=== PATIENT | male | born 1975 | race Caucasian/White ===

== ENCOUNTER 2018-04-05 11:33 | Emergency (ER) | payer OTHER ==
[2018-04-05] MEDS ORDERED: METHYLPREDNISOLONE SOD SUCC 125MG/2ML VIAL ONE (12:13)
[2018-04-05] MEDS ORDERED: ALBUTEROL SULFATE 0.083% 2.5 MG/3 ML INH IH ONE (12:28)
[2018-04-05] MEDS ORDERED: IPRATROPIUM 0.5 MG/2.5 ML INH IH ONE (12:28)
== END 2018-04-05 13:15 | disposition home or self-care (01) ==
LOC: EDH 11:33
DX: J45.21 Mild intermittent asthma with (acute) exacerbation (principal); Z72.0 Tobacco use
CPT/HCPCS: 94640; 96372; 99283; J2930

== ENCOUNTER 2023-10-07 23:34 | Emergency (ER) | payer OTHER ==
[~2023-10-07] VITALS: Ht 177.8 cm; Wt 74.8 kg
[2023-10-07 23:36] VITALS: BP 123/77; PULSE 88; RESP 16
[2023-10-08] MEDS ORDERED: IBUP-1493 PO (01:54)
== END 2023-10-08 02:26 | disposition home or self-care (01) ==
LOC: EDH 23:34
DX: S80.812A Abrasion, left lower leg, initial encounter (principal); F41.9 Anxiety disorder, unspecified; F32.A Depression, unspecified; Z98.890 Other specified postprocedural states; W18.39XA Other fall on same level, initial encounter; Y93.53 Activity, golf; Y92.39 Other specified sports and athletic area as the place of occurrence of the external cause; Y99.8 Other external cause status
CPT/HCPCS: 73590